=== PATIENT | female | born 1960 | race African-American/Black ===

== ENCOUNTER → 2016-09-06 | Outpatient (CLI) | payer OTHER ==
--- NOTE | 2016-09-07 07:38 | WWHP ---
DATE OF SERVICE: 09/06/2016 CHIEF COMPLAINT: The patient is here for her routine gynecologic exam and mammogram. HPI: This is a 56-year-old, G2, P2 with an LMP of 2009. The patient is without gynecologic complaints and denies any postmenopausal bleeding. PAST MEDICAL HISTORY: Chronic hypertension and deficiency. MEDICATIONS: 1. Atenolol with Chlorthalidone 50/20 1/2 tablet daily. 2. Vitamin D 50,000 units one every 2 weeks. ALLERGIES TO STATINS. 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 FAMILY HISTORY: Both parents have diabetes mother also has hypertension. Father had prostate cancer, 2 maternal aunts had breast cancer and a maternal grandmother had ovarian cancer. REVIEW OF SYSTEMS: Weight has been stable. She denies respiratory, cardiac, or GI problems. PHYSICAL EXAM: Blood pressure 140/66. Height 5 feet 4 inches. Weight 235 pounds. Temperature 97.4, pulse 87. This is a well-developed, heavyset black female who is alert and oriented x3 in no acute distress. HEENT is within normal limits. NECK: Supple without mass or thyromegaly. CHEST AND LUNGS: Clear to auscultation. HEART: Regular rate and rhythm. Breasts are without mass or discharge. Axillary exam is negative for adenopathy. BACK: Negative for CVA tenderness. ABDOMEN: Obese, soft, nontender, without palpable masses. PELVIC EXAM: External genitalia reveals mild atrophy without lesions. Cervix and vagina reveal mild atrophy without lesions. There is no evidence of prolapse. The uterus is midposition, nongravid size and nontender. There are no palpable adnexal masses or tenderness. Rectovaginal exam is negative for mass or tenderness and is negative for occult blood. EXTREMITIES: Nontender. IMPRESSION: 1. A 56-year-old menopausal female with normal gynecologic exam. 2. History of uterine fibroids without any significant physical findings at this time. PLAN: 1. Pap smear was deferred, since she had a normal one last year. 2. Self-breast examination was discussed. 3. Mammogram will be done today. 4. Osteoporosis prevention was discussed. 5. She will return in one year.
--- NOTE | 2016-09-07 12:55 | MM ---
Reason for exam: screening (asymptomatic). Last mammogram was performed 1 year and 2 months ago. History: Patient is postmenopausal. Family history of breast cancer in maternal aunt and breast cancer in aunt. Physical Findings: A clinical breast exam by your physician is recommended on an annual basis and results should be correlated with mammographic findings. MG 3D Screening Mammo W/Cad Bilateral CC and MLO view(s) were taken. Prior study comparison: July 21, 2015, bilateral MG 3d screening mammo w/cad. July 16, 2014, bilateral MG screening mammo w CAD. No significant changes when compared with prior studies. ASSESSMENT: Benign, BI-RAD 2 RECOMMENDATION: Routine screening mammogram of both breasts in 1 year.
== END ==
LOC: WWCWWP 14:17
PROVIDERS: ATTEND Obstetrics & Gynecology
DX: Z12.31 Encounter for screening mammogram for malignant neoplasm of breast (principal)
CPT/HCPCS: 77063; G0202

== ENCOUNTER → 2017-12-18 | Outpatient (CLI) | payer OTHER ==
--- NOTE | 2017-12-19 07:19 | MM ---
Reason for exam: additional evaluation requested from abnormal screening. Last mammogram was performed 1 month ago. History: Patient is postmenopausal. Family history of breast cancer in maternal aunt at age 45 and breast cancer in aunt at age 50. Physical Findings: Nurse did not find any significant physical abnormalities on exam. MG 3D Work Up W/Cad RT Spot compression CC, spot compression MLO, and LM view(s) were taken of the right breast. Prior study comparison: December 01, 2017, bilateral MG 3d screening mammo w/cad. September 06, 2016, bilateral MG 3d screening mammo w/cad. The breast tissue is heterogeneously dense. This may lower the sensitivity of mammography. No distinct lesion persists on additional views. These results were verbally communicated with the patient and result sheet given to the patient on 12/18/17. ASSESSMENT: Negative, BI-RAD 1 RECOMMENDATION: Return to routine screening mammogram schedule for both breasts.
== END | disposition home or self-care (01) ==
LOC: RADMAMWWP 14:46
PROVIDERS: ATTEND Obstetrics & Gynecology
DX: R92.8 Other abnormal and inconclusive findings on diagnostic imaging of breast (principal)
CPT/HCPCS: 77061; 77065

== ENCOUNTER 2023-10-12 02:15 | Emergency (ER) | payer OTHER ==
[2023-10-12 02:21] VITALS: RESP 18
[2023-10-12] MEDS: PROPARACAINE 0.5% OPHTH DROPS 15 ML BTL LEFT EYE STA (02:53)
[2023-10-12] MEDS: FLUORESCEIN STRIPS 1 MG STRIP BOTH EYES ONE (03:08)
--- NOTE | 2023-10-12 03:11 | ED ---
Eye Problem HPI - General Chief complaint: Eye Problems Stated complaint: Eye Issues Time Seen by Provider: 10/12/23 03:11 Source: patient, RN notes reviewed Mode of arrival: ambulatory Limitations: no limitations - History of Present Illness Initial comments: 63-year-old female presented to the ER with a chief complaint of bilateral eye irritation. Patient states she woke up in the middle the night to bilateral eyes erythematous and burning. She denies any double or blurry vision. She denies any possible injuries. She denies any new lotion, creams or possible allergens. No fevers or chills. - Related Data Home Medications Medication Instructions Recorded Confirmed Atenolol/Chlorthalidone 1 tab PO DAILY 09/20/18 09/20/18 [Atenolol-Chlorthalidone 50-25] Allergies Allergy/AdvReac Type Severity Reaction Status Date / Time rosuvastatin [From Crestor] AdvReac Unknown Verified 10/12/23 02:21 Zqgbclb-BLH-FyV Reductase AdvReac Unknown Verified 10/12/23 02:21 Inhibitor [Nnwniuj-Ygn-Zbd Reductase Inhibitor] Review of Systems ROS Statement: Those systems with pertinent positive or pertinent negative responses have been documented in the HPI. ROS Other: All systems not noted in ROS Statement are negative. Past Medical History Past Medical History: Diabetes Mellitus, Hypertension History of Any Multi-Drug Resistant Organisms: None Reported Past Surgical History: No Surgical Hx Reported Past Anesthesia/Blood Transfusion Reactions: No Reported Reaction Past Psychological History: No Psychological Hx Reported Smoking Status: Never smoker Past Alcohol Use History: None Reported Past Drug Use History: None Reported General Exam Limitations: no limitations General appearance: alert, in no apparent distress Eye exam: Present: normal appearance, PERRL, EOMI, conjunctival injection (Erythematous) Pupils: Present: normal accommodation ENT exam: Present: normal exam, normal oropharynx, mucous membranes moist, TM's normal bilaterally Neck exam: Present: normal inspection. Absent: tenderness, meningismus, lymphadenopathy Respiratory exam: Present: normal lung sounds bilaterally. Absent: respiratory distress, wheezes, rales, rhonchi, stridor Cardiovascular Exam: Present: regular rate, normal rhythm, normal heart sounds. Absent: systolic murmur, diastolic murmur, rubs, gallop, clicks Skin exam: Present: warm, dry, intact, normal color. Absent: rash Course Vital Signs 10/12/23 10/12/23 02:19 03:22 Temperature 98.0 F 98.1 F Pulse Rate 72 81 Respiratory 18 18 Rate Blood Pressure 153/88 145/81 O2 Sat by Pulse 96 97 Oximetry Medical Decision Making - Medical Decision Making Was pt. sent in by a medical professional or institution (TIFFANY Flores, [employer]CR[employer], urgent care, hospital, or [facility]...) When possible be specific @ -No Did you speak to anyone other than the patient for history (EMS, parent, family, police, friend...)? What history was obtained from this source @ -No Did you review nursing and triage notes (agree or disagree)? Why? @ -I reviewed and agree with nursing and triage notes Were old charts reviewed (outside hosp., previous admission, EMS record, old EKG, old radiological studies, urgent care reports/EKG's, [facility] records)? Report findings @ -No old charts were reviewed Differential Diagnosis (chest pain, altered mental status, abdominal pain women, abdominal pain men, vaginal bleeding, weakness, fever, dyspnea, syncope, headache, dizziness, GI bleed, back pain, seizure, CVA, palpatations, mental health, musculoskeletal)? @ -Corneal abrasion, ocular foreign body, hyphema, conjunctivitis, globe rupture, acute angle-closure glaucoma this list is not meant to be all-inclusive EKG interpreted by me (3pts min.). @ -None X-rays interpreted by me (1pt min.). @ -None done CT interpreted by me (1pt min.). @ -None done U/S interpreted by me (1pt. min.). @ -None done What testing was considered but not performed or refused? (CT, X-rays, U/S, labs)? Why? @ -None What meds were considered but not given or refused? Why? @ -None Did you discuss the management of the patient with other professionals (professionals i.e. TIFFANY Flores, SCRAP BREAKER, lab, RT, psych nurse, sr. social media & mobile manager, kiln head house operator, teacher, chief growth officer, director of casework department)? Give summary @ -No Was smoking cessation discussed for >3mins.? @ -No Was critical care preformed (if so, how long)? @ -No Were there social determinants of health that impacted care today? How? (Homelessness, low income, unemployed, alcoholism, drug addiction, transportation, low edu. Level, literacy, decrease access to med. care, skilled nursing, rehab)? @ -No Was there de-escalation of care discussed even if they declined (Discuss DNR or withdrawal of care, Hospice)? DNR status @ -No What co-morbidities impacted this encounter? (DM, HTN, Smoking, COPD, CAD, Cancer, CVA, ARF, Chemo, Hep., AIDS, mental health diagnosis, sleep apnea, morbid obesity)? @ -None Was patient admitted / discharged? Hospital course, mention meds given and route, prescriptions, significant lab abnormalities, going to OR and other pertinent info. @ -Discharge. 63-year-old female presented to the ER with a chief complaint of bilateral eye irritation. History and physical exam completed. Vitals stable. Patient in no signs of acute distress. Later eyes with conjunctival injection with watery drainage. Fluorescein stain negative for uptake. Intact extraocular motions. Pupils equal round and reactive. No periorbital swelling. Lid inversion negative for foreign body. Visual acuity 20/30 bilaterally. Symptoms believed to be allergic in nature. Patient received by mouth Benadryl for symptom control in the ER. Advised [id number] Claritin or Zyrtec for continued outpatient treatment. I also advised Benadryl. Strict return parameters discussed. Patient discharged stable condition. Patient verbally expressed understanding agree with care plan. Case discussed with ED attending, Dr. Barrett. Undiagnosed new problem with uncertain prognosis? @ -No Drug Therapy requiring intensive monitoring for toxicity (Heparin, Nitro, Insulin, Cardizem)? @ -No Were any procedures done? @ -No Diagnosis/symptom? @ -Allergic conjunctivitis Acute, or Chronic, or Acute on Chronic? @ -Acute Uncomplicated (without systemic symptoms) or Complicated (systemic symptoms)? @ -Uncomplicated Side effects of treatment? @ -No Exacerbation, Progression, or Severe Exacerbation? @ -No Poses a threat to life or bodily function? How? (Chest pain, [place], [place], pneumonia, PE, COPD, DKA, ARF, appy, cholecystitis, CVA, Diverticulitis, Homicidal, Suicidal, threat to staff... and all critical care pts) @ -No Disposition Clinical Impression: Allergic conjunctivitis Disposition: HOME SELF-CARE Condition: Stable Instructions (If sedation given, give patient instructions): Conjunctivitis (ED) Additional Instructions: I recommend [id number] Zyrtec or Claritin daily. I also recommend Benadryl. Follow-up with PCP. Return to the ER for any new or worsening concerns. Is patient prescribed a controlled substance at d/c from ED?: No Referrals: Ni Jameson MD [Primary Care Provider] - 1-2 days Time of Disposition: 03:11
[2023-10-12] MEDS: diphenhydrAMINE 50 MG CAP PO STA (03:20)
[2023-10-12 03:24] VITALS: BP 145/81; PULSE 81; TEMP 98.1
== END 2023-10-12 03:24 | disposition home or self-care (01) ==
LOC: EC 02:15
DX: H10.13 Acute atopic conjunctivitis, bilateral (principal); Z88.8 Allergy status to other drugs, medicaments and biological substances
CPT/HCPCS: 99283